=== PATIENT | female | born 1980 ===

== ENCOUNTER 2017-02-11 09:47 | Emergency (ER) | payer OTHER ==
[2017-02-11 10:10] VITALS: BMI 29.7
[2017-02-11 10:14] VITALS: TEMP 98.4; O2SAT 100
[2017-02-11] MEDS ORDERED: Morphine 4 mg/ml ISec IVP STA (11:26)
[2017-02-11] MEDS ORDERED: Sodium Chloride 0.9% 1,000 ML IV STA (11:26)
--- NOTE | 2017-02-11 11:31 | ED PDOC ---
Arrival/HPI - General Historian: Patient - General Chief Complaint: Abdominal Pain Time Seen by Provider: 02/11/17 11:05 - History of Present Illness Narrative History of Present Illness (Text): 02/11/17 11:08 36 y/o female, pmh including SLE, allergic to nsaid, c/o lt. sided upper quadrant abdominal pain started yesterday after had 3 glasses of margaritas. Aching and burning pain, epigastric to the lt. upper quadrant, associated with nausea and couple episodes of vomiting, no diarrhea, no rash, no chest pain or shortness of breath, no palpitation, no night sweat, no dizziness, no fever or chills, no other medical or psychological complaints. 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 - Pulmonary Hx Respiratory Disorders: No - Neurological Hx Neurological Disorder: Yes Hx Dizziness: Yes Other/Comment: COLLOID CYST BRAIN - HEENT Hx HEENT Disorder: No - Renal Hx Renal Disorder: No - Endocrine/Metabolic Hx Endocrine Disorders: Yes Hx Hyperthyroidism: Yes Hx Systemic Lupus Erythematosus: Yes - Hematological/Oncological Hx Blood Disorders: No Hx AIDS: No - Integumentary Hx Dermatological Disorder: Yes Hx Eczema: Yes - Musculoskeletal/Rheumatological Hx Musculoskeletal Disorders: Yes Hx Arthritis: Yes (rheumatoid) Hx Rheumatoid Arthritis: Yes - Gastrointestinal Hx Gastrointestinal Disorders: Yes Hx Colitis: Yes Hx Gall Bladder Disease: Yes Hx Gastritis: Yes Hx Gastrointestinal Ulcer: Yes - Genitourinary/Gynecological Hx Genitourinary Disorders: Yes Hx Urinary Tract Infection: Yes - Psychiatric Hx Psychophysiologic Disorder: Yes Hx Depression: Yes Hx Substance Use: No - Surgical History Hx Cholecystectomy: Yes - Anesthesia Hx Anesthesia: Yes Hx Anesthesia Reactions: Yes (Vomiting) Hx Malignant Hyperthermia: No - Suicidal Assessment Feels Threatened In Home Enviroment: No Family/Social History - Physician Review Nursing Documentation Reviewed: Yes Family/Social History: Unknown Family HX Smoking Status: Never Smoked Hx Alcohol Use: Yes Frequency of alcohol use: Socially Hx Substance Use: No Hx Substance Use Treatment: No Allergies/Home Meds Allergies/Adverse Reactions: Allergies ketorolac tromethamine [From Toradol] Allergy (Verified 02/11/17 10:11) ITCHING latex Allergy (Verified 02/11/17 10:11) RASH NSAIDS (Non-Steroidal Anti-Inflamma Allergy (Verified 02/11/17 10:11) VOMITING Review of Systems - Review of Systems Constitutional: absent: Fatigue, Fevers Eyes: absent: Vision Changes ENT: absent: Hearing Changes Respiratory: absent: Cough, Sputum Cardiovascular: absent: Chest Pain Gastrointestinal: Abdominal Pain, Nausea, Vomiting Musculoskeletal: absent: Arthralgias, Back Pain, Neck Pain Skin: absent: Rash, Pruritis, Skin Lesions Psychiatric: absent: Anxiety, Depression Physical Exam Vital Signs Reviewed: Yes Temperature: Afebrile Blood Pressure: Hypertensive Pulse: Regular Respiratory Rate: Normal Appearance: Positive for: Well-Appearing, Non-Toxic, Uncomfortable Pain Distress: Severe Mental Status: Positive for: Alert and Oriented X 3 - Systems Exam Head: Present: Atraumatic, Normocephalic Pupils: Present: PERRL Extroacular Muscles: Present: EOMI Conjunctiva: Present: Normal Mouth: Present: Moist Mucous Membranes Neck: Present: Normal Range of Motion Respiratory/Chest: Present: Clear to Auscultation, Good Air Exchange. No: Respiratory Distress, Accessory Muscle Use Cardiovascular: Present: Regular Rate and Rhythm, Normal S1, S2. No: Murmurs Abdomen: Present: Tenderness (+ttp on the epigastric and LUQ region), Normal Bowel Sounds. No: Distention, Peritoneal Signs, Rebound, Guarding Back: Present: Normal Inspection. No: CVA Tenderness, Midline Tenderness, Paraspinal Tenderness, Decubitus Ulcer Upper Extremity: Present: Normal Inspection, Capillary Refill < 2s, Norm 2-Pt Discrimination. No: Cyanosis, Edema, Deformity Lower Extremity: Present: Normal Inspection, Normal ROM, Capillary Refill < 2 s. No: Edema, Deformity Neurological: Present: GCS=15, Speech Normal, Motor Func Grossly Intact, Gait Normal, Memory Normal Skin: Present: Warm, Dry, Normal Color. No: Rashes Psychiatric: Present: Alert, Oriented x 3, Normal Insight, Normal Concentration Vital Signs Temp Pulse Resp BP Pulse Ox 02/11/17 13:00 65 18 134/79 100 02/11/17 12:16 61 16 136/84 100 02/11/17 12:00 65 17 135/82 100 02/11/17 10:11 98.4 F 74 16 154/97 H 100 Medical Decision Making - Lab Interpretations I have reviewed the lab results: Yes Interpretation: Abnormal lab values (+UTI) - RAD Interpretation Outside Maintenance Worker: Radiologist - EKG Interpretation Interpreted by ED Physician: Yes Type: 12 lead EKG ED Course and Treatment: I was available for consultation during PA evaluation. The chart was reviewed by me, and I agree with disposition. The documented history was done by the physician ethylene plant operator. The documented physical exam was done by the physician ethylene plant operator. The documented procedures were done by the physician ethylene plant operator. ( Hamilton Jain) 02/11/17 11:32 -labs/ua -CT abdomen and pelvis -IVF/moprhine/pepcid/zofran -observe and reassess 02/11/17 13:20 -EKG: NSR @ 62 BPM, T wave in version on the lead III and avF, no ST elevation or depression, no other T wave in versions. -Labs are non-significant -UA show mild UTI, will rx macrobid -CT show no acute findings. -Pt.'s pain relief with the medication, asymptomatic now, stated this feels like her gastritis she had before and not compliant with the protonix she has at home, stable to be discharged home, admits history of the gastritis with protonix at home, will give her carafate. -Discharge home with macrobid, carafate, stop drinking alcohol/coffee/tea/acidic /sour/spicy drinks or food, follow up with your own pmd and GI within 2 days, return to the ER for any new or worsening signs or symptoms. (Larry William) - Lab Interpretations Lab Results: 02/11/17 12:10 02/11/17 12:10 Lab Results 02/11/17 12:10: Sodium 138, Potassium 3.9, Chloride 102, Carbon Dioxide 27, Anion Gap 13, BUN 8, Creatinine 0.6, Est GFR ( Amer) > 60, Est GFR (Non- Af Amer) > 60, Random Glucose 88, Calcium 9.3, Total Bilirubin 0.9, AST 25, ALT 32, Alkaline Phosphatase 72, Total Protein 8.2, Albumin 4.4, Globulin 3.8, Albumin/Globulin Ratio 1.2, Lipase 51 02/11/17 12:10: Urine Color Light red, Urine Appearance Clear, Urine pH 6.0, Ur Specific [place] <= 1.005, Urine Protein Negative, Urine Glucose (UA) Negative, Urine Ketones Negative, Urine Blood Large H, Urine Nitrate Negative, Urine Bilirubin Negative, Urine Urobilinogen 0.2, Ur Leukocyte Esterase Trace H, Urine RBC 5 - 10, Urine WBC 0 - 2, Ur Epithelial Cells 0 - 2, Urine Bacteria Trace 02/11/17 12:10: WBC 8.1, RBC 4.21, Hgb 12.4, Hct 36.0, MCV 85.5, MCH 29.5, MCHC 34.4, RDW 12.9, Plt Count 223, MPV 9.6, Gran % 60.7, Lymph % (Auto) 28.9, [place] % (Auto) 6.5 H, Eos % (Auto) 3.7, Baso % (Auto) 0.2, Gran # 4.92, Lymph # 2.4, [place] # 0.5, Eos # 0.3, Baso # 0.02 - RAD Interpretation Radiology Orders: 02/11/17 11:26 ABD & PELVIS IV CONTRAST ONLY [CT] Stat PROCEDURE: CT Abdomen and Pelvis with contrast HISTORY: lt. upper quadrant abdominal pain/n/v COMPARISON: None. TECHNIQUE: Contrast dose: 100 mL Omnipaque 350 Radiation dose: Total exam DLP = 736.29 mGy-cm. This CT exam was performed using one or more of the following dose reduction techniques: Automated exposure control, adjustment of the mA and/or kV according to patient size, and/or use of iterative reconstruction technique. FINDINGS: LOWER THORAX: Unremarkable. LIVER: Unremarkable. No gross lesion or ductal dilatation. GALLBLADDER AND BILE DUCTS: Status post cholecystectomy PANCREAS: Unremarkable. No gross lesion or ductal dilatation. SPLEEN: Unremarkable. ADRENALS: Unremarkable. No mass. KIDNEYS AND URETERS: Unremarkable. No hydronephrosis. No solid mass. VASCULATURE: Unremarkable. No aortic aneurysm. BOWEL: Unremarkable. No obstruction. No gross mural thickening. APPENDIX: Normal appendix. PERITONEUM: Unremarkable. No free fluid. No free air. LYMPH NODES: Unremarkable. No enlarged lymph nodes. BLADDER: Unremarkable. REPRODUCTIVE: Normal uterus BONES: No acute fracture. OTHER FINDINGS: None. IMPRESSION: Status post cholecystectomy. No bowel obstruction. No other significant abnormality. (Larry William) - EKG Interpretation EKG Interpretation (Text): 02/11/17 13:32 NSR @ 62 BPM, T wave in version on the lead III and avF, no ST elevation or depression, no other T wave in versions. (Larry William) - Medication Orders Current Medication Orders: Discontinued Medications Famotidine (Pepcid) 20 mg IVP STAT STA Stop: 02/11/17 11:29 Last Admin: 02/11/17 12:08 Dose: 20 mg Sodium Chloride (Sodium Chloride 0.9%) 1,000 mls @ 999 mls/hr IV .Q1H1M STA Stop: 02/11/17 12:26 Last Admin: 02/11/17 12:08 Dose: 999 mls/hr Iohexol (Omnipaque 350 100 Ml) Confirm Administered Dose 350 mg .ROUTE .STK-MED ONE Stop: 02/11/17 12:22 Morphine Sulfate (Morphine) 4 mg IVP STAT STA Stop: 02/11/17 11:27 Last Admin: 02/11/17 12:08 Dose: 4 mg Ondansetron HCl (Zofran Inj) 4 mg IVP STAT STA Stop: 02/11/17 11:27 Last Admin: 02/11/17 12:08 Dose: 4 mg - PA / WARRANTY CLERK / Resident Statement MD/DO has reviewed & agrees with the documentation as recorded. Disposition/Present on Arrival - Present on Arrival Any Indicators Present on Arrival: No History of DVT/PE: No History of Uncontrolled Diabetes: No Urinary Catheter: No History of Decub. Ulcer: No History Surgical Site Infection Following: None - Disposition Have Diagnosis and Disposition been Completed?: Yes Disposition Time: 13:22 - Disposition Diagnosis: Gastritis, UTI (urinary tract infection) Disposition: HOME/ ROUTINE Patient Problems: Current Active Problems Problem Status Onset Gastritis Acute UTI (urinary tract infection) Acute Condition: IMPROVED Additional Instructions: Discharge home with macrobid, carafate, stop drinking alcohol/coffee/tea/acidic/ sour/spicy drinks or food, follow up with your own pmd and GI within 2 days, return to the ER for any new or worsening signs or symptoms. Prescriptions: Nitrofurantoin Macrocrystals [Macrobid] 100 mg PO BID #14 cap Sucralfate [Carafate] 1 gm PO QID #280 ml Referrals: Steff Lee MD [Primary Care Provider] - Follow up with primary Placido Martinez MD [Staff Provider] - Follow up with primary Forms: WORK NOTE
[2017-02-11 12:15] LABS: ADD MANUAL DIFF? NO
[2017-02-11 12:18] LABS: BASO # 0.02 K/mm3 (0.0-2.0); BASO % 0.2 % (0.0-3.0); EOS # 0.3 (0.0-0.7); EOS % 3.7 % (1.5-5.0); GRAN # 4.92 (1.4-6.5); GRAN % 60.7 % (50.0-68.0); LYMPH # 2.4 (1.2-3.4); LYMPH % 28.9 % (22.0-35.0); MEAN CELL VOLUME 85.5 fL (80.0-105.0); MEAN CORPUSCULAR HEMOGLOBIN 29.5 pg (25.0-35.0); MEAN CORPUSCULAR HGB CONC 34.4 g/dl (31.0-37.0); MEAN PLATELET VOLUME 9.6 fl (7.0-11.0); MONO # 0.5 (0.1-0.6); MONO % 6.5 % (1.0-6.0); PLATELET COUNT 223 10^3/uL (120.0-450.0); RED CELL DISTRIBUTION WIDTH 12.9 % (11.5-14.5); URINE APPEARANCE CLEAR (CLEAR); URINE BILIRUBIN NEGATIVE (NEGATIVE); URINE BLOOD LARGE (NEGATIVE); URINE COLOR LIGHT RED (YELLOW); URINE GLUCOSE (UA) NEGATIVE (NEGATIVE); URINE KETONE NEGATIVE (NEGATIVE); URINE LEUKOCYTE ESTERASE TRACE Leu/uL (NEGATIVE); URINE PROTEIN NEGATIVE mg/dL (<30 mg/dL); URINE UROBILINOGEN 0.2 E.U./dL (<1 E.U./dL); WHITE BLOOD COUNT 8.1 10^3/ul (4.5-11.0)
[2017-02-11] MEDS ORDERED: Iohexol 350 MG/100 ML VIAL ONE (12:21)
[2017-02-11 12:24] LABS: URINE BACTERIA TRACE (NEG); URINE EPITHELIAL CELLS 0 - 2 /hpf (0-5); URINE WBC 0 - 2 /hpf (0-6)
[2017-02-11 12:27] LABS: ALB/GLOB RATIO 1.2 (1.1-1.8); ALKALINE PHOSPHATASE 72 U/L (38-133); ALT/SGPT 32 U/L (7-56); AST/SGOT 25 U/L (15-39); BILIRUBIN,TOTAL 0.9 mg/dL (0.2-1.3); BLOOD UREA NITROGEN 8 mg/dL (7-21); CALCIUM 9.3 mg/dL (8.4-10.5); CARBON DIOXIDE 27 mmol/L (21-33); CHLORIDE 102 mmol/L (98-107); GFR AFRICAN-AMERICAN > 60; GLUCOSE,RANDOM 88 mg/dL (70-110); LIPASE 51 U/L (23-300); POTASSIUM 3.9 mmol/L (3.6-5.0); SODIUM 138 mmol/L (132-148); TOTAL PROTEIN 8.2 g/dL (5.8-8.3)
--- NOTE | 2017-02-11 13:12 | CT ---
PROCEDURE: CT Abdomen and Pelvis with contrast HISTORY: lt. upper quadrant abdominal pain/n/v COMPARISON: None. TECHNIQUE: Contrast dose: 100 mL Omnipaque 350 Radiation dose: Total exam DLP = 736.29 mGy-cm. This CT exam was performed using one or more of the following dose reduction techniques: Automated exposure control, adjustment of the mA and/or kV according to patient size, and/or use of iterative reconstruction technique. FINDINGS: LOWER THORAX: Unremarkable. LIVER: Unremarkable. No gross lesion or ductal dilatation. GALLBLADDER AND BILE DUCTS: Status post cholecystectomy PANCREAS: Unremarkable. No gross lesion or ductal dilatation. SPLEEN: Unremarkable. ADRENALS: Unremarkable. No mass. KIDNEYS AND URETERS: Unremarkable. No hydronephrosis. No solid mass. VASCULATURE: Unremarkable. No aortic aneurysm. BOWEL: Unremarkable. No obstruction. No gross mural thickening. APPENDIX: Normal appendix. PERITONEUM: Unremarkable. No free fluid. No free air. LYMPH NODES: Unremarkable. No enlarged lymph nodes. BLADDER: Unremarkable. REPRODUCTIVE: Normal uterus BONES: No acute fracture. OTHER FINDINGS: None. IMPRESSION: Status post cholecystectomy. No bowel obstruction. No other significant abnormality.
[2017-02-11 13:27] VITALS: PULSE 65
[2017-02-11 13:57] VITALS: BP 135/80; RESP 17
--- NOTE | 2017-02-11 14:39 | CARD ---
APPROVED REPORT EKG Measurement Heart [id number] <Conclusion> Normal sinus rhythm LVH by voltage RVCD
== END 2017-02-11 13:57 | disposition home or self-care (01) ==
LOC: ED 09:47
DX: N39.0 Urinary tract infection, site not specified (principal); K29.70 Gastritis, unspecified, without bleeding
CPT/HCPCS: 74177; 80053; 81001; 83690; 85025; 87086; 93005; 96361; 96374; 96375; 99285; J2270; J2405; J7040; Q9967

== ENCOUNTER 2017-06-26 13:22 | Emergency (ER) | payer OTHER ==
[2017-06-26 13:36] VITALS: RESP 18; O2SAT 100
[2017-06-26] MEDS ORDERED: Tmp-Smz 800 mg-160 mg DS Tab PO STA (13:56)
--- NOTE | 2017-06-26 13:56 | ED PDOC ---
Arrival/HPI - General Historian: Patient - History of Present Illness Time/Duration: Other (see hpi) Context: Home - General Chief Complaint: ENT Problem Time Seen by Provider: 06/26/17 13:52 - History of Present Illness Narrative History of Present Illness (Text): 06/26/17 13:55 This 36 yo female presents to this ED c/o left ear pain, left ear fullness sensation, dizziness x 2 days. Patient stated she is been treated for UTI, which it is causing her to have flank pain. Patient denies nausea, vomiting, vaginal discharge, fever, recent travel, sick contact, sob, cp, weakness, paresthesias, or abnormal gait. 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 - Pulmonary Hx Respiratory Disorders: No - Neurological Hx Neurological Disorder: Yes Hx Dizziness: Yes Other/Comment: COLLOID CYST BRAIN - HEENT Hx HEENT Disorder: No - Renal Hx Renal Disorder: No - Endocrine/Metabolic Hx Endocrine Disorders: Yes Hx Hyperthyroidism: Yes Hx Systemic Lupus Erythematosus: Yes - Hematological/Oncological Hx Blood Disorders: No Hx AIDS: No - Integumentary Hx Dermatological Disorder: Yes Hx Eczema: Yes - Musculoskeletal/Rheumatological Hx Musculoskeletal Disorders: Yes Hx Arthritis: Yes (rheumatoid) Hx Rheumatoid Arthritis: Yes - Gastrointestinal Hx Gastrointestinal Disorders: Yes Hx Colitis: Yes Hx Gall Bladder Disease: Yes Hx Gastritis: Yes Hx Gastrointestinal Ulcer: Yes - Genitourinary/Gynecological Hx Genitourinary Disorders: Yes Hx Urinary Tract Infection: Yes - Psychiatric Hx Psychophysiologic Disorder: Yes Hx Depression: Yes Hx Substance Use: No - Surgical History Hx Cholecystectomy: Yes Hx Tubal Ligation: Yes - Anesthesia Hx Anesthesia: Yes Hx Anesthesia Reactions: Yes (Vomiting) Hx Malignant Hyperthermia: No - Suicidal Assessment Feels Threatened In Home Enviroment: No Family/Social History - Physician Review Nursing Documentation Reviewed: Yes Family/Social History: Other (non-contributory) Smoking Status: Never Smoked Hx Alcohol Use: Yes Frequency of alcohol use: Socially Hx Substance Use: No Hx Substance Use Treatment: No Allergies/Home Meds Allergies/Adverse Reactions: Allergies latex Allergy (Verified 06/26/17 13:32) RASH tramadol Allergy (Verified 06/26/17 14:00) URTICARIA Home Medications: Home Meds Medication Instructions Recorded Confirmed Naproxen [Naprosyn] 500 mg PO PRN PRN 06/26/17 06/26/17 Review of Systems - Review of Systems Constitutional: Normal. absent: Fatigue, Weight Change, Fevers, Night Sweats Eyes: Normal ENT: Normal. absent: Sore Throat, Rhinorrhea Respiratory: Normal. absent: SOB, Cough, Sputum Cardiovascular: Normal. absent: Chest Pain, Palpitations, Edema, Calf Pain, SIBLEY , Orthopnea, Syncope Gastrointestinal: Other (right flank pain, which is has been improving as per patient). absent: Nausea, Vomiting Genitourinary Female: Other (Patient is taking Bactrim DS for UTI). absent: Dysuria, Frequency, Hematuria Musculoskeletal: Normal. absent: Arthralgias, Back Pain, Neck Pain, Joint Swelling Skin: Normal. absent: Rash Neurological: Headache, Dizziness. absent: Focal Weakness, Gait Changes, Speech Changes, Facial Droop, Disequilibrium, Seizure Endocrine: Normal Hemo/Lymphatic: Normal Psychiatric: Normal Physical Exam Temperature: Afebrile Blood Pressure: Normal Pulse: Regular Respiratory Rate: Normal Appearance: Positive for: Well-Appearing, Non-Toxic, Comfortable Pain Distress: None Mental Status: Positive for: Alert and Oriented X 3 - Systems Exam Head: Present: Atraumatic, Normocephalic Pupils: Present: PERRL Extroacular Muscles: Present: EOMI. No: Entrapment Conjunctiva: Present: Normal Ears: Present: NORMAL TM. No: Erythema, Normal Canal (left ear canal mild swelling, and tender when left ear lobe is pulled. No scalp rash, no facial rash), TM Bulging, Fluid, TM Perf Mouth: Present: Moist Mucous Membranes Pharnyx: Present: Normal. No: ERYTHEMA, EXUDATE, TONSILS ENLARGED Nose (External): Present: Atraumatic Nose (Internal): Present: Normal Inspection Neck: Present: Normal Range of Motion, Trachea Midline. No: Meningeal Signs, MIDLINE TENDERNESS, Paraspinal Tenderness Respiratory/Chest: Present: Clear to Auscultation, Good Air Exchange. No: Respiratory Distress, Accessory Muscle Use, Wheezes Cardiovascular: Present: Regular Rate and Rhythm, Normal S1, S2. No: Murmurs Abdomen: Present: Normal Bowel Sounds, Other (abdomen is soft, nt/nd). No: Tenderness, Distention, Peritoneal Signs, Rebound, Guarding Back: Present: Normal Inspection. No: CVA Tenderness Upper Extremity: Present: Normal Inspection, Normal ROM, NORMAL PULSES, Neurovascularly Intact, Capillary Refill < 2s. No: Cyanosis, Edema Lower Extremity: Present: Normal Inspection, NORMAL PULSES, Normal ROM, Neurovascularly Intact, Capillary Refill < 2 s. No: Edema, CALF TENDERNESS Neurological: Present: GCS=15, CN II-XII Intact, Speech Normal, Motor Func Grossly Intact, Normal Sensory Function, Normal Cerebellar Funct, Gait Normal, Memory Normal, Other (No neuro focal deficits. Romberg test was negative) Skin: Present: Warm, Dry, Normal Color. No: Rashes Psychiatric: Present: Alert, Oriented x 3, Normal Insight, Normal Concentration Vital Signs Temp Pulse Resp BP Pulse Ox 06/26/17 15:11 89.6 F L 86 18 140/82 100 06/26/17 13:35 98.3 F 80 18 146/90 100 Medical Decision Making Re-evaluation Time: 14:22 Reassessment Condition: Re-examined, Improved - Lab Interpretations I have reviewed the lab results: Yes Interpretation: No clinic. lab abnormalty ED Course and Treatment: I was available for consultation during PA evaluation. The chart was reviewed by me, and I agree with disposition. The documented history was done by the physician die cleaner. The documented physical exam was done by the physician die cleaner. The documented procedures were done by the physician die cleaner. (Hamilton Jain) 06/26/17 14:23 Re-evaluation. Patient feels better. Discussed results and plan with patient who expresses understanding. All questions answered and there is agreement with the plan to discharge home with instructions. Patient stable for discharge. Return if symptoms persist or worsen. Patient stated dizziness has improved. Patient has a normal gait. Patient understands to return to ED if symptoms worsen. to f/u ENT in 1-2 days (Sandeep Salazar) - Lab Interpretations Lab Results: Lab Results 06/26/17 14:25: Urine Color Yellow, Urine Appearance Clear, Urine pH 6.0, Ur Specific [place] 1.020, Urine Protein Negative, Urine Glucose (UA) Negative, Urine Ketones Negative, Urine Blood Negative, Urine Nitrate Negative, Urine Bilirubin Negative, Urine Urobilinogen 0.2, Ur Leukocyte Esterase Small H, Urine RBC Negative, Urine WBC 1 - 3, Ur Epithelial Cells 4 - 5, Urine Bacteria Few - Medication Orders Current Medication Orders: Discontinued Medications Cephalexin Monohydrate (Keflex) 500 mg PO STAT STA PRN Reason: Protocol Stop: 06/26/17 13:56 Last Admin: 06/26/17 14:09 Dose: 500 mg Ketorolac Tromethamine (Toradol) 30 mg IM STAT STA Stop: 06/26/17 14:03 Last Admin: 06/26/17 14:14 Dose: 30 mg [facility] Pain Assessment Document 06/26/17 14:14 AB (Rec: 06/26/17 14:14 [id number] Pain Reassessment Is this a pain reassessment? Yes Sleep Is patient sleeping during reassessment? No Presence of Pain Presence of Pain Yes Pain Scale Used Pain Scale Used Numeric Location Left, Right or Bilateral Bilateral Pain Location Body Site Ear IM Administration Charges Document 06/26/17 14:14 AB (Rec: 06/26/17 14:14 [id number] Charges for Administration # of IM Administrations 1 Re-Assess: [facility] Pain Assessment Document 06/26/17 15:09 AB (Rec: 06/26/17 15:11 AB [id number]) Pain Reassessment Is this a pain reassessment? Yes Sleep Is patient sleeping during reassessment? No Presence of Pain Presence of Pain No Pain Scale Used Pain Scale Used Numeric Location Left, Right or Bilateral Bilateral Upper or Lower Upper Pain Location Body Site Ear Description Alleviating Factors Medication Effects of Pain not in any pain currently. Meclizine HCl (Antivert) 50 mg PO STAT STA Stop: 06/26/17 13:57 Last Admin: 06/26/17 14:13 Dose: 50 mg Trimethoprim/Sulfamethoxazole (Bactrim Ds Tab) 1 tab PO STAT STA PRN Reason: Protocol Stop: 06/26/17 13:57 Last Admin: 06/26/17 14:13 Dose: 1 tab Disposition/Present on Arrival - Present on Arrival Any Indicators Present on Arrival: No History of DVT/PE: No History of Uncontrolled Diabetes: No Urinary Catheter: No History of Decub. Ulcer: No History Surgical Site Infection Following: None - Disposition Have Diagnosis and Disposition been Completed?: Yes Disposition Time: Patient Plan: Discharge - Disposition Diagnosis: Otitis externa Disposition: HOME/ ROUTINE Condition: GOOD Discharge Instructions (ExitCare): Otitis Externa (ED), Benign Paroxysmal Positional Vertigo (ED) Additional Instructions: Call Ear nose and throat doctor office in 1-2 days for revaluation. Return to emergency if symptoms worsen. Take medication as instructed. Return to emergency if symptoms worsen. Take Bactrim DS for 7 days only. Take home Naproxen for pain as needed. Prescriptions: Cephalexin [cephalexin] 500 mg PO QID #28 cap Ciprofloxacin/Dexamethasone [Ciprodex 0.3%-0.1% 7.5 Ml] 4 drop BID #1 bottle Meclizine [Meclizine*] 25 mg PO Q6 PRN #30 tab PRN Reason: Dizziness Sulfamethoxazole/Trimethoprim [Bactrim DS 800 mg-160 mg] 1 tab PO BID #20 tab Referrals: Alex Reynoso DO [Staff Provider] - Follow up with primary Forms: [employer] (Vietnamese)
[2017-06-26 14:32] LABS: URINE BILIRUBIN NEGATIVE (NEGATIVE); URINE BLOOD NEGATIVE (NEGATIVE); URINE GLUCOSE (UA) NEGATIVE (NEGATIVE); URINE KETONE NEGATIVE (NEGATIVE); URINE LEUKOCYTE ESTERASE SMALL Leu/uL (NEGATIVE); URINE PROTEIN NEGATIVE mg/dL (<30 mg/dL); URINE UROBILINOGEN 0.2 E.U./dL (<1 E.U./dL)
[2017-06-26 14:39] LABS: URINE APPEARANCE CLEAR (CLEAR); URINE COLOR YELLOW (YELLOW)
[2017-06-26 14:46] LABS: URINE BACTERIA FEW (NEG); URINE RBC NEGATIVE /hpf (0-2)
[2017-06-26 15:12] VITALS: BP 140/82; PULSE 86; TEMP 89.6
== END 2017-06-26 15:11 | disposition home or self-care (01) ==
LOC: ED 13:22
DX: H60.92 Unspecified otitis externa, left ear (principal)
CPT/HCPCS: 81001; 87086; 96372; 99283; J1885